=== PATIENT | female | born 1960 | race Caucasian/White ===

== ENCOUNTER 2017-05-17 19:37 | Emergency (ER) | payer MEDICAID, OTHER ==
[2017-05-17 19:56] VITALS: TEMP 97.5
--- NOTE | 2017-05-17 21:34 | C.PDOC ---
History Of Present Illness Andreia is a 57 y/o female smoker, with PMHx of a leaky heart valve, who presents today complaining of a cough with yelloiw phlegm, with associated nasal congestion, yellow mucus production, and fullness to left ear for the past week. Reports sick coworkers. No fevers, chest pain, or shortness of breath. Had similar symptoms one month ago and was treated by PMD with antibiotics, but symptoms have now returned. Today she felt a cold sensation on her chest, prompting this ED visit, but no cp or sob. PMD: Sylvie Mistry Time Seen by Provider: 05/17/17 20:14 Chief Complaint (Nursing): Cough, Cold, Congestion History Per: Patient History/Exam Limitations: no limitations Onset/Duration Of Symptoms: Days (x 1 week) Current Symptoms Are (Timing): Still Present Sick Contacts (Context): Individual(s) At Work Associated Symptoms: Cough, Sinus Drainage, Nasal Congestion Past Medical History Reviewed: Historical Data, Nursing Documentation, Vital Signs Vital Signs: Last Vital Signs Temp 97.5 F L 05/17/17 19:49 Pulse 61 05/17/17 19:49 Resp 18 05/17/17 19:49 BP 155/80 H 05/17/17 19:49 Pulse Ox 100 05/17/17 21:46 - Medical History PMH: Mitral Valve Prolapse Denies: Chronic Kidney Disease - [facility] Procedures LOCAL EXCIS BREAST LES (02/10/04) Family History: States: No Known Family Hx - Social History Hx Tobacco Use: Yes Hx Alcohol Use: Yes Hx Substance Use: No - Immunization History Hx Tetanus Toxoid Vaccination: No Hx Influenza Vaccination: No Hx Pneumococcal Vaccination: No Review Of Systems Constitutional: Negative for: Fever, Chills ENT: Positive for: Nose Congestion Cardiovascular: Positive for: Other ("cold" sensation on chest). Negative for: Chest Pain Respiratory: Positive for: Cough, Sputum (yellow). Negative for: Shortness of Breath Physical Exam - Physical Exam Appears: Non-toxic, No Acute Distress Skin: Normal Color, Warm, Dry Head: Atraumatic, Normacephalic Eye(s): bilateral: Normal Inspection, PERRL, EOMI Ear(s): Bilateral: Normal Nose: Normal Throat: Normal, No Erythema, No Exudate Neck: Normal ROM, Supple Chest: Symmetrical, No Tenderness Cardiovascular: Rhythm Regular, No Murmur Respiratory: Normal Breath Sounds, No Accessory Muscle Use, No Rales, No Rhonchi , No Wheezing Gastrointestinal/Abdominal: Soft, No Tenderness Extremity: Bilateral: Atraumatic, Normal ROM Neurological/Psych: Oriented x3, Normal Speech, Normal Cognition ED Course And Treatment O2 Sat by Pulse Oximetry: 100 (RA) Pulse Ox Interpretation: Normal - Radiology CXR: Interpreted by Me, Viewed By Me CXR Interpretation: Yes: No Acute Disease Progress Note: Ordered Chest X-Ray. Medical Decision Making Medical Decision Making: pt with cxr neg for pneumonia on my read, uri sympotms, no need for antibipotics. pt unable to take sudafed, due to palpitations. pt to be prescribed claritin and nasal saline, with pmd f/u on saturday. advised to stop smoking. Disposition Counseled Patient/Family Regarding: Studies Performed, Diagnosis, Need For Followup, Rx Given - Disposition Referrals: Sylvie Mistry MD [Medical Doctor] - Disposition: HOME/ ROUTINE Disposition Time: 21:52 Condition: STABLE Additional Instructions: Drink increased fluids- water especially. Avoid dairy for a few days, makes secretions thicker. Use over the counter nasal saline severa times a day. Take claritin as prescribed. Follow up with Dr Mistry on . Return to ER for amny worsening symptms. Stop smoking. Prescriptions: Loratadine 10 mg PO DAILY #30 tablet Instructions: Upper Respiratory Infection (ED) Forms: [facility] (Italian), General Discharge Instructions, Work Excuse - Clinical Impression Clinical Impression: Upper respiratory infection - PA / [employer] / Resident Statement MD/DO has reviewed & agrees with the documentation as recorded. - Scribe Statement The provider has reviewed the documentation as recorded by the Scribcheri Bae All medical record entries made by the Joaquinibcheri were at my direction and personally dictated by me. I have reviewed the chart and agree that the record accurately reflects my personal performance of the history, physical exam, medical decision making, and the department course for this patient. I have also personally directed, reviewed, and agree with the discharge instructions and disposition.
[2017-05-17 22:04] VITALS: BP 145/85; PULSE 88; RESP 16
--- NOTE | 2017-05-18 07:45 | RAD ---
HISTORY: Chest pain. Cough. COMPARISON: No prior. TECHNIQUE: Chest PA and lateral FINDINGS: LUNGS: Biapical pleural thickening with upper lobe granulomatous changes. Hyperinflation suggestive for COPD and or emphysematous changes. Diffuse increased interstitial lung markings. Few scattered nodular densities. Bibasilar breast and nipple shadows. PLEURA: No significant pleural effusion identified. No pneumothorax apparent. CARDIOVASCULAR: Normal. OSSEOUS STRUCTURES: No significant abnormalities. VISUALIZED UPPER ABDOMEN: Normal. OTHER FINDINGS: None. IMPRESSION: Biapical pleural thickening with upper lobe granulomatous changes. Hyperinflation suggestive for COPD and or emphysematous changes. Diffuse increased interstitial lung markings. Few scattered nodular densities. Bibasilar breast and nipple shadows.
[2017-05-21 21:38] VITALS: O2SAT 100
== END 2017-05-17 22:04 | disposition home or self-care (01) ==
LOC: C.ER 19:37
DX: J06.9 Acute upper respiratory infection, unspecified (principal); Z72.0 Tobacco use